=== PATIENT | female | born 1955 | race Caucasian/White ===

== ENCOUNTER 2023-10-26 12:15 | Emergency (ER) | payer MEDICARE, OTHER, SELFPAY ==
[2023-10-26 12:20] VITALS: BP 132/77; PULSE 68; RESP 18; TEMP 35.9; O2SAT 99; BMI 27.4
--- NOTE | 2023-10-26 12:32 | ED.GENADULT ---
HPI - General Adult General Chief complaint: Abdominal Pain Stated complaint: fainted - sweating, Time Seen by Provider: 10/26/23 12:30 History of Present Illness HPI narrative: Was going to the bathroom this morning when she felt like she could pass out. Lowered herself to the floor and says she did pass out. Woke up and started vomiting. Has been having abdominal pain, started this morning. Reports a loose BM this morning. Was shaky and sweaty at time of event. 68-year-old woman presenting to the emergency department with concern of near syncope. Had been having some loose bowel movements this morning and was on the toilet at the time with intense a abdominal pain having a bowel movement. She does think she probably has some degree of IBS and probably ate something late yesterday that triggered reaction or allergy. No fever. She was at this time though noting herself to be very diaphoretic. Did not have chest pain or sense of palpitations. No shortness of breath. She did lower herself to the floor and called for help to her on her cellphone. I ask her if she would be here for her abdominal pain and she says no. She does not have pain now. It was the other symptoms. This is also in the setting of over some months when exerting herself while walking usually up some hills she will experience a tightness radiating up both sides of the back of her neck. It appears that she she is concerned that this might be some anginal equivalent. Does not have a history of certain known cerebrovascular disease or cardiovascular disease. Does have a history of Graves. She thinks it is probably been 5 years since she has had any lab work done. Abdominal pain has essentially resolved. When it did occur it was more in the left lower abdomen. No history of seizures Related Data Home Medications ?Medication ?Instructions ?Recorded ?Confirmed levothyroxine 75 mcg capsule 75 mcg PO .every other day 02/28/23 10/26/23 levothyroxine 88 mcg capsule 88 mcg PO .every other day 02/28/23 10/26/23 spironolactone 50 mg tablet 50 mg PO DAILY PRN 02/28/23 10/26/23 Allergies Allergy/AdvReac Type Severity Reaction Status Date / Time cortisone Allergy Severe swelling Verified 10/26/23 12:25 gentian jorge alberto Allergy Severe Anaphylaxis Verified 10/26/23 12:25 levofloxacin Allergy Severe Anaphylaxis Verified 10/26/23 12:25 petroleum Allergy Severe Swelling Uncoded 02/28/23 10:16 of Lip/Tongue/Throat Review of Systems Status of ROS: Reports: 6 or more systems reviewed and unremarkable except as noted in History and below [facility] Social History Smoking Status: Never smoker Do you use any of these nicotine containing products: None How often do you have a drink containing alcohol: never How often do you have six or more drinks on one occasion: Never AUDIT-C Alcohol total score: 0 Non-prescribed substance use: denies use Exam Narrative: Exam Narrative: Pleasant. Easily conversant. Breathing easily. Hair is a little disheveled. Generally carefully groomed. Cranial nerves 2-12 intact. Pupils are equal and brisk. Breathing easily with clear lungs. No reproducible pain to palpation over the neck or trapezius or rhomboid musculature. Heart in regular rate and rhythm without murmur rub or gallop. Abdomen with present bowel sounds soft and nontender. Is well-perfused peripherally without edema. Const: Vital Signs, click to edit/add: Vital Signs - 24 hr 10/26/23 12:20 10/26/23 14:29 10/26/23 15:09 Temperature 96.6 F L Pulse Rate [Right Pulse Oximeter] 68 71 Pulse Rate [orthos tatic lying Pulse Oximeter] 67 Pulse Rate [orthos tatic sitting Puls e Oximeter] 70 Pulse Rate [orthos tatic standing Pul se Oximeter] 79 Respiratory Rate 18 18 Blood Pressure [Ri ght Upper Arm] 132/77 127/79 Blood Pressure [or thostatic lying Ri ght Arm] 137/82 Blood Pressure [or thostatic sitting Right Arm] 137/84 Blood Pressure [or thostatic standing Right Arm] 134/80 Pulse Oximetry 99 99 Oxygen Delivery Me thod Room Air Room Air Documenting provider has reviewed patient's vital signs: yes Course Vital Signs Vital signs: Initial Vital Signs Temperature 96.6 F L 10/26/23 12:20 Temperature Source Temporal Artery Scan 10/26/23 12:20 Pulse Rate 68 10/26/23 12:20 Respiratory Rate 18 10/26/23 12:20 Blood Pressure 132/77 10/26/23 12:20 Blood Pressure Mean 95 10/26/23 12:20 Blood Pressure Position Sitting 10/26/23 12:20 Pulse Oximetry 99 10/26/23 12:20 Oxygen Delivery Method Room Air 10/26/23 12:20 Vital Signs Temperature 96.6 F L 10/26/23 12:20 Pulse Rate 68 10/26/23 12:20 Respiratory Rate 18 10/26/23 12:20 Blood Pressure 132/77 10/26/23 12:20 Pulse Oximetry 99 10/26/23 12:20 Oxygen Delivery Method Room Air 10/26/23 12:20 Temperature 96.6 F L 10/26/23 12:20 Pulse Rate 67 10/26/23 15:09 Respiratory Rate 18 10/26/23 14:29 Blood Pressure 137/82 10/26/23 15:09 Pulse Oximetry 99 10/26/23 14:29 Oxygen Delivery Method Room Air 10/26/23 14:29 Medical Decision Making MDM Narrative Medical decision making narrative: I would suspect vasovagal event secondary to abdominal cramping/discomfort which seems to have been essentially resolved at this point. Not seem to require workup related to the abdominal pain specifically. She does admit concern related to heart attack. Family history is reassuring in this regard. Could have experienced tachyarrhythmias well or bradycardic event. Will EKG looking for evidence of dysrhythmia. Screen TSH is less been quite some time. Look for evidence of anemia and ischemic cardiovascular event. COVID could though be contributing to loose stools. Labs are reassuring. Overall she is well. No further events in the emergency department. See patient discharge plan for further discussion Medical Records Medical records reviewed: Yes I reviewed the patient's medical records Lab Data Lab results reviewed: Yes I reviewed the patient's lab results Labs: Lab Results 10/26/23 10/26/23 Range/Units 12:53 13:03 WBC 7.30 (4.50-11.00) K/uL RBC 4.29 (4.00-5.20) m/uL Hgb 12.6 (12.0-16.0) gm/dL Hct 38.3 (33.0-51.0) % MCV 89 (80-100) fL MCH 29 (26-34) pg MCHC 33 (32-36) gm/dL RDW Coeff of South 13.1 (11.5-15.5) % Plt Count 253 (140-440) K/uL Neut % (Auto) 77.8 H (42.0-72.0) % Lymph % (Auto) 13.3 L (20-44) % [place]vier % (Auto) 8.2 (0.0-11.0) % Eos % (Auto) 0.5 (0.0-7.0) % Baso % (Auto) 0.1 (0.0-3.0) % Neut # (Auto) 5.70 (1.7-7.0) K/uL Lymph # (Auto) 1.00 (0.90-2.90) K/uL [place]vier # (Auto) 0.60 (0.00-0.90) K/UL Eos # (Auto) 0.04 (0.00-0.50) K/uL Baso # (Auto) 0.01 (0.00-0.30) K/uL Abs Immat Gran (auto) 0.01 (0.00-0.30) K/uL Imm/Tot Granulo (auto) 0.1 % Sodium 138 (135-149) mmol/L Potassium 4.1 (3.6-5.1) mmol/L Chloride 106 (96-114) mmol/L Carbon Dioxide 27 (20-32) mmol/L Anion Gap 5 L (7-15) mEq/L BUN 12 (7-30) mg/dL Creatinine 0.7 (0.5-1.5) mg/dL Estimated Creat Clear 41.99 Estimated GFR 94 ml/min Glucose 98 (60-115) mg/dL Calcium 9.2 (8.4-10.6) mg/dL Magnesium 2.0 (1.5-2.6) mg/dL Troponin I < 0.01 L (0.01-0.04) ng/mL NT-Pro-B Natriuret Pep 80 pg/mL TSH 0.502 (0.270-4.20) uIU/mL POC Troponin I 0.00 L (0.01-0.04) ng/ml ECG Data Attestation: I personally reviewed and interpreted this ECG as follows: (Normal sinus rhythm. Rate of 63) Discharge Plan Discharge Clinical Impression: Vasovagal episode, Irritable bowel Patient Disposition: Home w/ Parent or Adult Condition: Improved Additional Instructions: You check out well here today :) Stay well-hydrated. I would also consider following up with your primary care provider for evaluation of this pressure you have been feeling upon exertion. I appreciate your concern in this matter; this may warrant further workup. Prescriptions: No Action spironolactone 50 mg tablet 50 mg PO DAILY PRN levothyroxine 75 mcg capsule 75 mcg PO .every other day levothyroxine 88 mcg capsule 88 mcg PO .every other day Follow Up/Referrals: Provider,Not a Local [Primary Care Provider] - Stand Alone Forms: [employer] Info Instructions
[2023-10-26 13:11] LABS: Basophils Absolute Auto 0.01 K/uL (0.00-0.30); Basophils Percent Auto 0.1 % (0.0-3.0); Eosinophils Absolute Auto 0.04 K/uL (0.00-0.50); Eosinophils Percent Auto 0.5 % (0.0-7.0); Hematocrit 38.3 % (33.0-51.0); Hemoglobin* 12.6 gm/dL (12.0-16.0); Immature Granulocytes Abs Auto 0.01 K/uL (0.00-0.30); Immature Granulocytes Pct Auto 0.1 %; Lymphocytes Percent Auto 13.3 % (20-44); Mean Corpuscular HGB Conc 33 gm/dL (32-36); Mean Corpuscular Hemoglobin 29 pg (26-34); Mean Corpuscular Volume 89 fL (80-100); Monocytes Percent Auto 8.2 % (0.0-11.0); Neutrophils Percent Auto 77.8 % (42.0-72.0); Platelet Count* 253 K/uL (140-440); RDW Coefficient of Variation % 13.1 % (11.5-15.5); Red Blood Count 4.29 m/uL (4.00-5.20)
[2023-10-26 13:25] LABS: Slide Review Reflex No
[2023-10-26 13:29] LABS: Chloride* 106 mmol/L (96-114); Potassium* 4.1 mmol/L (3.6-5.1); Sodium* 138 mmol/L (135-149)
[2023-10-26 13:32] LABS: Anion Gap 5 mEq/L (7-15); Blood Urea Nitrogen* 12 mg/dL (7-30); Calcium* 9.2 mg/dL (8.4-10.6); Carbon Dioxide* 27 mmol/L (20-32); Creatinine* 0.7 mg/dL (0.5-1.5); Est. Creatinine Clearance* 41.99; Estimated Glomerular Filt Rate 94 ml/min; Glucose* 98 mg/dL (60-115)
[2023-10-26 13:46] LABS: NT Pro B Type NatriureticPept* 80 pg/mL; Troponin I* < 0.01 ng/mL (0.01-0.04)
[2023-10-26 14:29] VITALS: BP 127/79; PULSE 71; RESP 18; O2SAT 99
[2023-10-26 14:51] LABS: Thyroid Stimulating Hormone* 0.502 uIU/mL (0.270-4.20)
[2023-10-26 15:09] VITALS: BP 134/80; BP 137/82; BP 137/84; PULSE 67; PULSE 70; PULSE 79
== END 2023-10-26 15:20 | disposition home or self-care (01) ==
PROVIDERS: Emergency Provider Family Medicine
DX: R55 Syncope and collapse (principal); K58.9 Irritable bowel syndrome, unspecified
CPT/HCPCS: 36415; 80048; 83735; 83880; 84443; 84484; 85025; 87631; 93005; 99284